=== PATIENT | male | born 1980 | race Caucasian/White ===

== ENCOUNTER → 2016-08-26 | Outpatient (CLI) | payer OTHER ==
[~2016-08-26] MED LIST: FEXO180T PO; Z.0.NO CURRENT MEDS
--- NOTE | 2016-08-26 12:34 | TR ---
Date Performed: 08/26/2016 Time Performed: 11:36:33 DOCTOR: Javan Helton DRUG LIST: CLINICAL HISTORY: REASON FOR TEST: REASON FOR ENDING: OBSERVATION: CONCLUSION: VONNIE PROTOCOL. NO CP. TEST STOPPED AFTER EXCEEDING GOAL HR SECONDARY TO SOB AND LEG FATIGUE.Maximum RJ=407 % Max HR Achieved=94.0% Maximum ZA=554/88 Total Exercise Time=8:02 COMMENTS: positive stress test with 2.0 to 2[address] depression inferior and 1.5 mm late rally,quickly normalizing post exercize in recovery,suggest nuclear stress test.
== END ==
LOC: HCAV 11:14
PROVIDERS: ATTEND Family Medicine
DX: R07.89 Other chest pain (principal)
CPT/HCPCS: 93017